=== PATIENT | male | born 1945 | race African-American/Black ===

== ENCOUNTER 2020-05-04 20:13 | Emergency (ER) | payer MEDICARE, OTHER ==
[~2020-05-04] VITALS: Ht 185.4 cm; Wt 77.0 kg
[2020-05-04 20:16] VITALS: BP 123/81
== END 2020-05-04 22:24 | disposition home or self-care (01) ==
LOC: ER 20:13
DX: S00.212A Abrasion of left eyelid and periocular area, initial encounter (principal); Y93.01 Activity, walking, marching and hiking; W01.198A Fall on same level from slipping, tripping and stumbling with subsequent striking against other object, initial encounter; Y92.89 Other specified places as the place of occurrence of the external cause; I50.9 Heart failure, unspecified
CPT/HCPCS: 99284

== ENCOUNTER 2021-11-22 19:53 | Emergency (ER) | payer BC, MEDICARE ==
[~2021-11-22] VITALS: Ht 195.6 cm; Wt 70.0 kg
[2021-11-22 20:56] VITALS: BP 112/81
== END 2021-11-22 23:45 | disposition left against medical advice (07) ==
LOC: ER 19:53
DX: Z53.21 Procedure and treatment not carried out due to patient leaving prior to being seen by health care provider (principal)